=== PATIENT | female | born 2000 | race Caucasian/White ===

== ENCOUNTER → 2023-07-21 | Outpatient (CLI) | payer BC, SELFPAY ==
[2023-07-21 12:49] LABS: Internal QC Validated? YES +Cl - CLEAR BKGD; Pregnancy, Urine Negative Negative
== END | disposition home or self-care (01) ==
PROVIDERS: PCP Family Medicine
DX: L70.0 Acne vulgaris (principal); L70.5 Acne excoriee; Z79.899 Other long term (current) drug therapy; F42.4 Excoriation (skin-picking) disorder; L23.3 Allergic contact dermatitis due to drugs in contact with skin
CPT/HCPCS: 81025